=== PATIENT | female | born 1985 | race Caucasian/White ===

== ENCOUNTER 2016-02-11 23:43 | Emergency (ER) | payer OTHER ==
[~2016-02-11] VITALS: Ht 157.5 cm; Wt 68.1 kg
[~2016-02-11 23:43] MED LIST: CPR500 PO; MTR500 PO
[2016-02-11 23:48] VITALS: TEMP 36.8; Ht 157.5 cm; Wt 68.1 kg
[2016-02-12] MEDS ORDERED: SUMATRIPTAN SUCCINATE 6 MG/0.5 ML VIAL SQ STA (00:07)
[2016-02-12] MEDS ORDERED: KETOROLAC TROMETHAMINE 60 MG/2 ML VIAL IM STA (00:09)
[2016-02-12] MEDS ORDERED: ONDANSETRON 4MG OD TAB PO ONE (00:15)
[2016-02-12] MEDS ORDERED: DEXAMETHASONE SOD INJ 10 MG/ML VIAL IM ONE (00:15)
[2016-02-12] MEDS ORDERED: PRED50TA PO (01:08)
--- NOTE | 2016-02-12 01:08 | EMERGENCY ROOM VISIT NOTE ---
History First contact with patient: 23:57 Chief Complaint: HEADACHE Stated Complaint: MIGRAINE History of Present Illness The patient is a 30 year old female who presents to the Emergency Department by private vehicle for evaluation of a migraine headache. The patient reports a history of migraine headaches. She is provided Maxalt to be used for her breakthrough headaches. She reports that this headache started earlier today. She did take one Maxalt earlier today without relief of symptoms. She describes this as a "typical" migraine headache with associated nausea, photophobia, phonophobia, and pain in her neck. She reports that these symptoms are all consistent with previous migraines. She is managed by her primary care provider. She had an unremarkable imaging study of her head performed within the past few years. The patient rates her current discomfort as a 9/10. She denies any blurry vision, double vision, slurred speech, facial droop, unilateral weakness/numbness chest pain, abdominal pain, or chance for . Review of Systems A complete 10-point Review of Systems was discussed with the patient, with pertinent positives and negatives listed in the History of Present Illness. All remaining Review of Systems questions can be considered negative unless otherwise specified. Past Medical/Surgical History Medical Problems: (1) Anxiety (2) GERD (gastroesophageal reflux disease) (3) Insomnia (4) Migraines (5) Tobacco abuse (6) Tobacco Use Disorder Surgical Problems: (1) History of oophorectomy (2) History of wisdom tooth extraction Family History FH: cancer FH: diabetes mellitus FH: hypertension Social History Smoking Status: Current Every Day Smoker Alcohol Use: none Marital Status: single Housing Status: lives with family Occupation Status: unemployed Current/Historical Medications Scheduled Control Pills ( Control Pills), 1 TAB PO DAILY Omeprazole (Prilosec), 20 MG PO DAILY Prednisone (Prednisone), 50 MG PO DAILY Scheduled PRN Rizatriptan Benzoate (Maxalt), 5 MG PO UD PRN for Migraine Allergies Coded Allergies: No Known Allergies (Unverified , 07/14/15) Physical Exam Vital Signs Date Time Temp Pulse Resp B/P Pulse Ox O2 Delivery O2 Flow Rate FiO2 02/12/16 01:14 81 18 132/94 99 02/11/16 23:48 36.8 104 18 138/91 98 Room Air Pain Rating (0-10): 9 Physical Exam VITAL SIGNS - Vital signs and nursing notes were reviewed. GENERAL - 30-year-old female appearing her stated age who is in no acute distress. Communicates well with provider and answers questions appropriately. HEAD - Normocephalic, Atraumatic. No Lutz's Sign or Raccoon's Eyes. No depressed skull fractures palpable. EYES - PERRL with EOMI bilaterally. Sclera anicteric. Palpebral conjunctiva pink and moist with no injection noted. EARS - No deformities of external structures noted on gross examination bilaterally. No pain elicited with palpation of the tragus bilaterally. External auditory canals without discharge or otorrhea. Tympanic membranes pearly lopes without retraction or bulging. NOSE - Midline and without cyanosis. No epistaxis or purulent drainage noted. Septum midline without deviation or septal hematoma noted. MOUTH/OROPHARYNX - Without perioral cyanosis. Buccal mucosa pink and moist and without leukoplakia. Tongue midline with equal elevation of palate bilaterally. No tonsillar hypertrophy, erythema, or exudates noted. Good dentition noted. NECK - Neck with FROM. Supple to palpation. No lymphadenopathy noted. No nuchal rigidity. LUNGS - Chest wall symmetric without accessory muscle use, intercostals retractions, or central cyanosis. Normal vesicular breath sounds CTA B/L. No wheezes, rales, or rhonchi appreciated. CARDIAC - RRR with S1/S2. No murmur, rubs, or gallops appreciated. EXTREMITIES - No pretibial edema present. +3/5 radial and dorsalis pedis pulses palpated throughout. FROM with no tremors, fasciculations, or clonus noted on PROM throughout. +5/5 strength noted in UE/LE bilaterally. NEUROLOGIC - Cranial nerves II through XII grossly intact. Sensory intact to light touch throughout. Patellar reflexes +2/4. Patient able to perform rapid alternating movements appropriately. Negative Pronator Drift. Negative finger-to -nose. PSYCH - A&Ox3 and cooperates fully with examiner. Pt is very pleasant and interacts well with examiner. Medical Decision & Procedures Medications Administered Medications (Trade) Dose Ordered Sig/Makayla Route Start Time Stop Time Status Last Admin Dose Admin Ondansetron HCl (Zofran Odt) 4 mg ONE ONCE PO 02/12/16 00:15 02/12/16 00:16 DC 02/12/16 00:17 4 MG Sumatriptan Succinate (Imitrex Sq Inj) 6 mg NOW STAT SQ 02/12/16 00:07 02/12/16 00:09 DC 02/12/16 00:18 6 MG Dexamethasone Sodium Phosphate (Decadron Inj) 10 mg NOW ONCE IM 02/12/16 00:15 02/12/16 00:16 DC 02/12/16 00:20 10 MG Ketorolac Tromethamine (Toradol Inj) 60 mg NOW STAT IM 02/12/16 00:09 02/12/16 00:10 DC 02/12/16 00:22 60 MG ED Course Patient was seen and evaluated by myself. Previous emergency department visit notes were reviewed. The patient was treated with Toradol, Imitrex, Decadron, and Zofran. She was reevaluated and reports feeling better at this time. Patient was offered a short course of prednisone for her symptoms breakthrough migraine. She was encouraged to follow up with her primary care provider from today's visit. She was educated on worrisome symptoms for return visit to the emergency department. Patient discharged home afebrile and in good condition. Medical Decision Given the patient's presentation and stated complaints, I did elect to perform the above-mentioned workup. The patient presents today with a migraine headache. She has a history of the same. She took her Maxalt without relief. The patient has no focal neurological deficits. Her exam is otherwise unremarkable. She responded well to Imitrex, Toradol, Decadron, and Zofran. She drove to the emergency department which precluded the use of any narcotic medication for her symptoms. She is comfortable and is very to be discharged at this point. She was provided a short course of prednisone to help cornel this current migraine. The patient was educated on following with her primary care provider or return for any changing or worsening symptoms. Patient discharged home afebrile and in good condition. In the evaluation and treatment of this patient, the following differential diagnoses were considered: Migraine Headache, Intracranial Hemorrhage, Subdural Hematoma, Subarachnoid Hemorrhage, Cerebral Aneurysm, Temporal/Giant Cell Arteritis, Tension Headache, Meningitis, Encephalitis, or Hydrocephalus. Impression Primary Impression: Migraine Additional Impression: Cephalgia Departure Information Dispostion Home / Self-Care Condition GOOD Prescriptions Prednisone (Prednisone) 50 Mg Tab 50 MG PO DAILY for 4 Days, #4 TAB Prov: Yayo Quan, LAUREANO 02/12/16 Referrals Tasia Samaniego M.D. (PCP) Patient Instructions A Signature Page, ED Headache Migraine, My [facility] Additional Instructions You have been treated in the Emergency Department for a Headache. You have been prescribed Prednisone 50 mg to be taken orally once a day for the next 4 days. This is an anti-inflammatory medicine to be used to help minimize your symptoms. You should take the COMPLETE course of the medication. For pain control, you can use the following uowu-grk-[id number] medicines (if >12 yo): - Regular strength (325mg/tab) Tylenol (acetaminophen) 2 tabs every 4-6 hours as needed. Do not exceed 12 tablets in a 24 hour period. Avoid taking more than 4 grams (4000 mg) of Tylenol per day. This includes any other sources of acetaminophen you may take on a regular basis. - Regular strength (200 mg/tab) Advil (ibuprofen) 1-2 tabs every 4-6 hours as needed. Do not exceed a dose of 3200 mg per day. You should relax in a quiet, dark place for the rest of the day. Avoid any possible triggers including: cigarette smoke, caffeine, nicotine, chocolate, wine, beer, loud noises or music, or bright lights. You should schedule a follow-up appointment in 2-3 days with your Primary Care Provider or established Neurologist for further evaluation and treatment of your Headache. Return to the Emergency Department if your current symptoms worsen despite treatment course outlined above, or if you develop any of the following symptoms : intractable pain despite aforementioned treatment course, visual disturbances , loss of vision, unilateral weakness or facial drooping, slurring of speech, loss of coordination, or loss of consciousness.
[2016-02-12 01:14] VITALS: BP 132/94; PULSE 81; O2SAT 99
[2016-07-06] MEDS ORDERED: HYDR-5688 PO (12:01)
[2016-07-06] MEDS ORDERED: KETO10TA PO (12:01)
== END 2016-02-12 01:16 | disposition home or self-care (01) ==
LOC: C.EDB 23:44 → C.EDC 02-12 01:16
DX: G43.909 Migraine, unspecified, not intractable, without status migrainosus (principal); F41.9 Anxiety disorder, unspecified; K21.9 Gastro-esophageal reflux disease without esophagitis; G47.00 Insomnia, unspecified; F17.200 Nicotine dependence, unspecified, uncomplicated; Z98.890 Other specified postprocedural states; Z80.9 Family history of malignant neoplasm, unspecified; Z83.3 Family history of diabetes mellitus; Z82.49 Family history of ischemic heart disease and other diseases of the circulatory system

== ENCOUNTER 2016-03-26 15:29 | Emergency (ER) | payer OTHER ==
[~2016-03-26] VITALS: Ht 154.9 cm; Wt 70.0 kg
[2016-03-26 15:56] VITALS: TEMP 37.2; Ht 154.9 cm; Wt 70.0 kg
--- NOTE | 2016-03-26 17:03 | DIAGNOSTIC IMAGING REPORT ---
RIGHT ELBOW MIN 3 VIEWS ROUTINE CLINICAL HISTORY: rule out fracture Right trauma. Pain. COMPARISON: None. DISCUSSION: The bones and joint spaces appear intact. There is no evidence of fracture, dislocation or bony disease. There is no evidence for soft tissue swelling. Lucency overlying the medial epicondyles on a single projection appears to be artifactual IMPRESSION: Negative study. Electronically signed by: Isra Vasquez M.D. 03/26/2016 5:01 PM Dictated Date/Time: 03/26/2016 5:01 PM
[2016-03-26] MEDS ORDERED: IBUP-1451 PO (17:41)
[2016-03-26] MEDS ORDERED: HYDR-5688 PO (18:08)
--- NOTE | 2016-03-26 18:09 | EMERGENCY ROOM VISIT NOTE ---
ED Visit Note First contact with patient: 17:16 CHIEF COMPLAINT: Right elbow injury yesterday HISTORY OF PRESENT ILLNESS: Patient is a right-hand dominant 30-year-old white female who presents to emergency department for evaluation right elbow pain. She states she was pushing a bed, when she felt a pop in the right elbow. She complains of pain in the lateral aspect of the elbow that is worse with movement , particularly extension. She is been taking ibuprofen for discomfort which she rates a 7/10. She reports a history of tendinitis in this elbow but states that this pain feels different. REVIEW OF SYSTEMS: Review of systems as per HPI. All other systems reviewed were negative. At least 6 systems reviewed. PMH: Electronic medical records are reviewed and summarized as above/below. See Problem List.y. SOCIAL HISTORY: Patient lives at home with her son. Smoker.. PHYSICAL EXAM: Vital Signs: Reviewed nurse's notes. MUSCULOSKELETAL: Examination of the right elbow does not demonstrate any obvious deformity. No ecchymosis, abrasions or swelling or erythema over the olecranon. The patient has pain over the radial aspect of the elbow, over the radial head, and extending toward the supracondylar area. No pain over the olecranon. No discomfort over the triceps tendon. Range of motion is full, has discomfort with full extension but can flex, pronate and supinate well. No gross ligamentous instability is appreciated. EMERGENCY DEPARTMENT COURSE: An X-ray of the elbow does not show any fractures or dislocations. No fluid in the joint. The patient declined an arm sling. Patient was reviewed in the [facility] Prescription Drug Monitoring Program, and there were no red flags noted. She was given a small prescription for Caldwell to use for discomfort. Differential diagnosis included fracture, dislocation, sprain, ligamentous injury, among others. RIGHT ELBOW MIN 3 VIEWS ROUTINE CLINICAL HISTORY: rule out fracture Right trauma. Pain. COMPARISON: None. DISCUSSION: The bones and joint spaces appear intact. There is no evidence of fracture, dislocation or bony disease. There is no evidence for soft tissue swelling. Lucency overlying the medial epicondyles on a single projection appears to be artifactual IMPRESSION: Negative study. Problem List Medical Problems: (1) Anxiety Status: Chronic (2) GERD (gastroesophageal reflux disease) Status: Chronic (3) Insomnia Status: Chronic (4) Migraines Status: Chronic (5) Tobacco abuse Status: Chronic Surgical Problems: (1) History of oophorectomy Permanent Comment: left overy- benign dermoid cyst- Dr. Quintanilla Status: Resolved (2) History of wisdom tooth extraction Status: Resolved Current/Historical Medications Scheduled Control Pills ( Control Pills), 1 TAB PO DAILY Omeprazole (Prilosec), 20 MG PO DAILY Scheduled PRN Hydrocodone/Acetaminophen 5MG/325MG (Caldwell 5MG/325MG), 1-2 TABLETS PO Q4 PRN for Pain Ibuprofen Tab (Motrin), 800 MG PO Q8H PRN for Pain Rizatriptan Benzoate (Maxalt), 5 MG PO UD PRN for Migraine Allergies Coded Allergies: No Known Allergies (Unverified , 03/26/16) Vital Signs Date Time Temp Pulse Resp B/P Pulse Ox O2 Delivery O2 Flow Rate FiO2 03/26/16 18:19 92 18 143/106 98 Room Air 03/26/16 15:56 37.2 110 20 133/89 99 Room Air Medications Administered Medications (Trade) Dose Ordered Sig/Makayla Route Start Time Stop Time Status Last Admin Dose Admin Acetaminophen/ Hydrocodone Bitart (Caldwell 5/325mg Home Pack) 1 homepack UD ONCE PO 03/26/16 18:15 03/26/16 18:16 DC 03/26/16 18:19 1 HOMEPACK Departure Information Impression Primary Impression: Right elbow pain Prescriptions Hydrocodone/Acetaminophen 5MG/325MG (Caldwell 5MG/325MG) Tab 1-2 TABLETS PO Q4 Y for Pain, #15 TAB For Initial Treatment Prov: Megan Dwyer PA 03/26/16 Referrals Tasia Samaniego M.D. (PCP) Patient Instructions My [facility] Additional Instructions Hydrocodone/Acetaminophen (Caldwell) 5/325 mg: Take 1-2 pills every four hours for breakthrough pain. Avoid alcohol, operating machinery or dangerous equipment, working on ladders or roofs, DRIVING, or situations where being under the influence may be dangerous. It is recommended to use an fsnj-srs-ioyvsxx stool softener such as Colace, 100mg twice daily while taking this medication to avoid constipation. Ibuprofen(Motrin, Advil) may be used for fever or pain. Use 600mg every six hours as needed. Take with food. Avoid using more than 2400mg in a 24 hour period. Do not use 2400mg per day for more than three consecutive days without physician direction. Prolonged inappropriate use can lead to stomach upset or ulcers. This medication can be taken if you need to drive, work, or perform activities which may be dangerous when taking narcotic pain medication. (AND/OR) Acetaminophen(Tylenol) may be used for fever or pain. Use 1000mg every six hours as needed. Avoid using more than 3000mg in a 24 hour period. This medication can be taken if you need to drive, work, or perform activities which may be dangerous when taking narcotic pain medication. Ice compresses for 20 minutes at a time four times daily for 2-3 days. Rest and elevate your injury. Continue current medications. Return to the ER immediately for any numbness, tingling, severe pain, extreme swelling in the extremity or as needed. Follow up with your family doctor or orthopedics if your symptoms are not improving.
[2016-03-26] MEDS ORDERED: NORCO 5/325MG HOME PACK PO ONE (18:15)
[2016-03-26 18:19] VITALS: BP 143/106; PULSE 92; O2SAT 98
[2016-07-06] MEDS ORDERED: HYDR-5688 PO (12:01)
[2016-07-06] MEDS ORDERED: KETO10TA PO (12:01)
== END 2016-03-26 18:22 | disposition home or self-care (01) ==
LOC: C.EDB 15:30 → C.EDD 18:22
DX: M25.521 Pain in right elbow (principal); X58.XXXA Exposure to other specified factors, initial encounter; F41.9 Anxiety disorder, unspecified; K21.9 Gastro-esophageal reflux disease without esophagitis; F17.200 Nicotine dependence, unspecified, uncomplicated; Z98.890 Other specified postprocedural states

== ENCOUNTER 2016-06-27 19:27 | Emergency (ER) | payer OTHER ==
[~2016-06-27] VITALS: Ht 157.5 cm; Wt 70.2 kg
[~2016-06-27 19:27] MED LIST changes: -CPR500 PO; +HYDR-5688 PO; +IBUP-1451 PO; -MTR500 PO
[2016-06-27 19:30] VITALS: BP 146/95; PULSE 96; TEMP 37; O2SAT 99; Ht 157.5 cm; Wt 70.2 kg
[2016-06-27] MEDS ORDERED: OXYCODONE IR HOME PACK PO ONE (19:45)
[2016-06-27] MEDS ORDERED: OXYC1TAB3 PO ×2 (20:02→20:33)
[2016-06-27] MEDS ORDERED: PRLSR20 PO (20:54)
[2016-06-27] MEDS ORDERED: RIZA5TAB10 PO (20:54)
[2016-06-27] MEDS ORDERED: BCPILLS PO (20:54)
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
[2016-07-06] MEDS ORDERED: HYDR-5688 PO (12:01)
[2016-07-06] MEDS ORDERED: KETO10TA PO (12:01)
[2016-12-09] MEDS ORDERED: NAPR-1169 PO (13:38)
[2016-12-09] MEDS ORDERED: IBUP-1050 PO (13:38)
[2016-12-09] MEDS ORDERED: IBUP-1451 PO (20:57)
== END 2016-06-27 20:00 | disposition home or self-care (01) ==
LOC: C.EDB 19:28 → C.EDD 20:00
DX: S83.92XA Sprain of unspecified site of left knee, initial encounter (principal); X50.1XXA Overexertion from prolonged static or awkward postures, initial encounter; F41.9 Anxiety disorder, unspecified; K21.9 Gastro-esophageal reflux disease without esophagitis; G47.00 Insomnia, unspecified; G43.909 Migraine, unspecified, not intractable, without status migrainosus; Z72.0 Tobacco use; Z79.3 Long term (current) use of hormonal contraceptives

== ENCOUNTER → 2016-07-06 | Day surgery (SDC) | payer OTHER ==
[2016-06-29 07:34] VITALS: Ht 157.5 cm; Wt 65.9 kg
[~2016-07-06] VITALS: Ht 157.5 cm; Wt 65.9 kg
[~2016-07-06] MED LIST changes: +ATROPINE SULFATE 0.1 MG/ML 5ML SYR IV PRN; +BCPILLS PO; +BUPIVACAINE/EPINEPHRINE 0.25% 1:200,000 30 ML VIAL ONE; +CEFAZOLIN 2000 MG/60 ML D5W IV SCH; +CITA20TA9 PO; +DEXAMETHASONE SOD INJ 4 MG/ML VIAL ONE; +EpHEDrine SULFATE INJ 50 MG/ML AMP IV PRN; +FENTANYL CITRATE INJ 50 MCG/1 ML 2 ML VIAL ONE; +HYDROCODONE/ACETAMOPHEN 5/325MG TAB PO PRN; +HYDROmorphone INJ 1 MG/ML SYR IV PRN; +IBUP-1050 PO; +KETO10TA PO; +KETOROLAC TROMETHAMINE 30 MG/ML VIAL IV. PRN; +KETOROLAC TROMETHAMINE 30 MG/ML VIAL ONE; +LACTATED RINGER'S 1000ML 1,000 ML IV SCH; +LIDOCAINE HCL 2% 2 ML VIAL (20MG/ML) ONE; +METH4PAK PO; +MIDAZOLAM HCL 1 MG/ML 2ML VIAL ONE; +NAPR-1169 PO; +OMEP40CA41 PO; +ONDANSETRON INJ 2 MG/ML 2 ML VIAL IV PRN; +ONDANSETRON INJ 2 MG/ML 2 ML VIAL ONE; +PROPOFOL IV EMULSION 10 MG/ML 20 ML VIAL IV ONE; +RIZA5TAB10 PO; +SODIUM CHLORIDE 0.9% 1000ML 1,000 ML IV SCH
--- NOTE | 2016-07-06 09:15 | History & Physical Bridge - [place] ---
H&P Re-Evaluation Bridge Note: I have examined the patient, reviewed the History & Physical and in the interval since the performance of the History & Physical I have noted the following changes of clinical significance: No changes noted
--- NOTE | 2016-07-06 11:46 | [facility] Post Operative Brief Note ---
Immediate Operative Summary Operative Date Jul 06, 2016. Pre-Operative Diagnosis Right Elbow Lateral Epicondylitis Post-Operative Diagnosis same as preop Procedure(s) Performed Right Elbow Nirshl Procedure Surgeon Dr. Cunningham Gear Tooth Lapping Machine Operator Surgeon(s) Lexx Regan PA-C Estimated Blood Loss 0ML Findings as above Specimens A: Lateral Epicondylitis Right Elbow
--- NOTE | 2016-07-06 12:03 | Discharge Instructions-SurgCtr ---
Discharge Instructions Date of Service Jul 06, 2016. Visit Reason for Visit: Right Elbow Lateral Epicondylitis Discharge Discharge Diagnosis / Problem: SAME ASA MEE Discharge Goals Goal(s): Decrease discomfort, Improve function Activity Recommendations Activity Limitations: as noted below Lifting Limitations: until after follow-up appointment Exercise/Sports Limitations: until after follow-up appointment Shower/Bathe: may shower/bathe in 3 days Anesthesia . Post Anesthesia Instructions: If you have had General Anesthesia or IV Sedation: * Do not drive today. * Resume driving when surgeon permits. * Do not make important decisions or sign legal documents today. * Call surgeon for: 1. Temperature elevations greater than 101 degrees F. 2. Uncontrollable pain. 3. Excessive bleeding. 4. Persistent nausea and vomiting. 5. Medication intolerance (nausea, vomiting or rash). * For nausea and vomiting use only clear liquids such as: tea, soda, bouillon until nausea subsides, then gradually increase diet as tolerated. * If you have any concerns or questions, call your surgeon's office. If physician is unavailable and it is an emergency, call 911 or go to the nearest emergency room. . Instructions / Follow-Up Instructions / Follow-Up MEDICATIONS: * Resume previous medications unless instructed otherwise by your surgeon. * Always take pain medication on a full stomach or with food to avoid upset stomach. * Do not drink alcohol or drive while taking narcotics. * Ibuprofen or Tylenol may be taken if narcotic not needed. SPECIAL CARE INSTRUCTIONS: __ None _X_ Keep extremity elevated and iced x 48 hours; apply ice 20-30 minutes 8-10 times/day. May remove at night. __ Sling __24 hrs/day __ Remove at night __ Shoulder Immobilizer __ 24 hrs/day __ Remove at night _X_ Dressing __ Maintain until seen in office, may shower with plastic over site _X_ Remove dressings in 3 DAYS. MAY SHOWER SOONER IF COVERED WITH PLASTIC BAG _X_ Cover incisions with band-aids after showering __ Do not remove steri-strips WEAR THE COCK-UP WRIST SPLINT AT ALL TIMES Call physician if chills or temperature rises above 102 degrees or pain unrelieved by prescribed pain medications at . . Diet Recommendations Home Diet: no limitations Fluid Restriction: None Procedures Procedures Performed: Right Elbow Nirshl Procedure Pending Studies Studies pending at discharge: yes List of pending studies: LATERAL EPICONDYLITIS OF RIGHT ELBOW Work Instructions Return To Work: after follow-up Lifting Limitations: no more than 10 pounds Medical Emergencies . Who to Call and When: Medical Emergencies: If at any time you feel your situation is an emergency, please call 911 immediately. . Non-Emergent Contact Non-Emergency issues call your: Primary Care Provider Call Non-Emergent contact if: you have a fever, temperature is above 101.5 . . "Provider Documentation" section prepared by Doni Regan. .
[2016-07-06] MEDS: FENTANYL CITRATE INJ 50 MCG/1 ML 2 ML VIAL IV PRN ×4 (12:04→12:26)
--- NOTE | 2016-07-06 12:19 | OPERATIVE REPORT ---
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 POSTOPERATIVE DIAGNOSIS: Same. PROCEDURE: Right elbow Nirschl procedure. SURGEON: Dr. Angel Cunningham. TOOL BUILDER: Jagjit Regan PA-C, whose assistance was necessary for retraction and helping positioning the arm. ANESTHESIA: General. COMPLICATIONS: None. CONDITION: Stable to PACU. INDICATIONS: Yolis is a pleasant 31-year-old female, who presented to my office with chronic right elbow pain. Clinically, she was diagnosed with a lateral epicondylitis. She failed extensive conservative treatment including multiple injections and elected to undergo a tenotomy. OPERATION AND FINDINGS: On 07/06/2016, she arrived at [facility] for the above procedure. She was seen in the preoperative holding area and the operative extremity was identified and signed. She was given a preoperative antibiotic and taken back to the operating room, laid on the table in supine position and put under general anesthesia. The right elbow was then prepped and draped in sterile fashion. Time-out was done and the patient and operative extremity was properly identified. A curvilinear incision was made over the lateral epicondyle. Dissection was taken down to the extensor mechanism. An incision was made between the extensor digitorum comminus and the extensor digitorum longus. The brevis was identified beneath. Lang-appearing angiofibroblastic tissue was identified and it was removed with a sharp knife. The tissue was sent to pathology for diagnosis. A small arthrotomy was made into the elbow. Time was spent ensuring all the diseased tissue was excised. A rongeur was used to do a minimal epicondylectomy. The wound was then irrigated and the interval between the extensor comminus and digitorum longus was closed with 2-0 Vicryl suture and skin was closed with 3-0 Vicryl and a nylon. She was then placed in a soft dressing and given a wrist splint. She was then extubated, transferred to [facility] and taken to the postanesthesia care unit in stable condition. She tolerated the procedure well. I attest to the content of the Intraoperative Record and any orders documented therein. Any exception s are noted below.
[2016-07-06 12:41] VITALS: TEMP 36.6
[2016-07-06 13:08] VITALS: BP 121/80; PULSE 84; O2SAT 97
--- NOTE | 2016-07-06 13:10 | Anesthesia Progress Nt - [facility] ---
Anesthesia Post Op Note Date & Time Jul 06, 2016 at 13:05 Vital Signs Pain Intensity: 3 Vital Signs Past 12 Hours Date Time Temp Pulse Resp B/P (MAP) Pulse Ox O2 Delivery O2 Flow Rate FiO2 07/06/16 12:41 36.6 84 20 127/79 (95) 98 Room Air 07/06/16 12:31 36.7 84 16 130/71 98 Room Air 07/06/16 12:31 130/71 07/06/16 12:30 88 16 96 07/06/16 12:30 88 16 07/06/16 12:26 119/83 07/06/16 12:25 81 15 98 07/06/16 12:25 84 15 07/06/16 12:22 103/79 07/06/16 12:20 84 17 07/06/16 12:20 83 17 100 07/06/16 12:16 113/67 07/06/16 12:15 82 13 100 07/06/16 12:15 83 13 07/06/16 12:11 120/74 07/06/16 12:10 79 14 100 07/06/16 12:10 80 14 07/06/16 12:06 126/80 07/06/16 12:05 82 18 100 07/06/16 12:05 82 18 07/06/16 12:01 129/82 07/06/16 12:00 84 20 07/06/16 12:00 84 20 100 07/06/16 11:56 126/75 07/06/16 11:55 86 20 100 07/06/16 11:55 87 20 07/06/16 11:51 128/88 07/06/16 11:50 90 15 100 07/06/16 11:50 90 15 07/06/16 11:47 124/113 07/06/16 11:45 36.2 76 16 124/113 97 Mask 6 07/06/16 10:02 37.1 97 16 130/82 (98) 100 Room Air Notes Mental Status: alert / awake / arousable, participated in evaluation Pt Amnestic to Procedure: Yes Nausea / Vomiting: adequately controlled Pain: adequately controlled Airway Patency, RR, SpO2: stable & adequate BP & HR: stable & adequate Hydration State: stable & adequate Anesthetic Complications: no major complications apparent In preop holding area, I performed my airway exam and obtained a mallampati grade but the patient refused to show me her teeth. She said she had very poor dentition with many missing and decaying teeth. She did not think anything was loose at the time. In the OR after induction and prior to placing the LMA, myself and BRICK UNLOADER TENDER looked at patient's teeth and noted many decaying teeth and great care was taken to place the LMA, which was done easily. On emergence from anesthesia, LMA was removed but a small amount of her front tooth rubbed off on the LMA (appeared to be a combination of plaque and rotted enamel). I spoke to the patient prior to discharge to let her know what had happened and she stated she was not concerned and said she was having all of her teeth removed at the end of this month given her poor dentition. She wanted no further action to be taken. All questions were answered prior to discharge.
== END | disposition home or self-care (01) ==
LOC: X.SURG 09:44
PROVIDERS: ATTEND Orthopaedic Surgery
DX: M77.11 Lateral epicondylitis, right elbow (principal); F17.210 Nicotine dependence, cigarettes, uncomplicated

== ENCOUNTER 2016-08-22 22:16 | Emergency (ER) | payer OTHER ==
[~2016-08-22] VITALS: Ht 157.5 cm; Wt 69.4 kg
[~2016-08-22 22:16] MED LIST changes: -ATROPINE SULFATE 0.1 MG/ML 5ML SYR IV PRN; -BUPIVACAINE/EPINEPHRINE 0.25% 1:200,000 30 ML VIAL ONE; -CEFAZOLIN 2000 MG/60 ML D5W IV SCH; -CITA20TA9 PO; -DEXAMETHASONE SOD INJ 4 MG/ML VIAL ONE; -EpHEDrine SULFATE INJ 50 MG/ML AMP IV PRN; -FENTANYL CITRATE INJ 50 MCG/1 ML 2 ML VIAL ONE; -HYDROCODONE/ACETAMOPHEN 5/325MG TAB PO PRN; -HYDROmorphone INJ 1 MG/ML SYR IV PRN; -IBUP-1050 PO; -IBUP-1451 PO; -KETOROLAC TROMETHAMINE 30 MG/ML VIAL IV. PRN; -KETOROLAC TROMETHAMINE 30 MG/ML VIAL ONE; -LACTATED RINGER'S 1000ML 1,000 ML IV SCH; -LIDOCAINE HCL 2% 2 ML VIAL (20MG/ML) ONE; -METH4PAK PO; -MIDAZOLAM HCL 1 MG/ML 2ML VIAL ONE; -NAPR-1169 PO; -OMEP40CA41 PO; -ONDANSETRON INJ 2 MG/ML 2 ML VIAL IV PRN; -ONDANSETRON INJ 2 MG/ML 2 ML VIAL ONE; -PROPOFOL IV EMULSION 10 MG/ML 20 ML VIAL IV ONE; -SODIUM CHLORIDE 0.9% 1000ML 1,000 ML IV SCH
[2016-08-22 22:19] VITALS: TEMP 37.1; Ht 157.5 cm; Wt 69.4 kg
[2016-08-22] MEDS ORDERED: CITA20TA9 PO (22:34)
[2016-08-22] MEDS ORDERED: OMEP40CA41 PO (22:34)
[2016-08-22] MEDS ORDERED: KETOROLAC TROMETHAMINE 60 MG/2 ML VIAL IM STA (22:45)
[2016-08-22] MEDS ORDERED: DEXAMETHASONE SOD INJ 10 MG/ML VIAL PO ONE (22:45)
[2016-08-23] MEDS ORDERED: METH4PAK PO (00:21)
[2016-08-23] MEDS ORDERED: OXYCODONE IR HOME PACK PO ONE (00:30)
[2016-08-23 00:59] VITALS: BP 148/93; PULSE 71; O2SAT 100
--- NOTE | 2016-08-23 01:04 | EMERGENCY ROOM VISIT NOTE ---
History First contact with patient: 22:25 Chief Complaint: OTHER COMPLAINT Stated Complaint: PINCHED NERVE History of Present Illness The patient is a 31 year old female who presents to the Emergency Room with complaints of neck pain that radiates down her right arm for the past 2 weeks as aching, ranging in severity 6 out of 10. Patient just finished a steroid taper pack and this seemed to help but the pain is returned since she's finished this. No direct injury to the area. She's had neck pain before. This is recurrent. She has not seen orthopedic spine For this. Patient denies numbness, tingling, weakness, chest pain, dyspnea, neck stiffness, headache, fevers, chills, trauma to the area. Review of Systems See HPI for pertinent positives & negatives. A total of 10 systems reviewed and were otherwise negative. Past Medical/Surgical History Medical Problems: (1) Anxiety (2) GERD (gastroesophageal reflux disease) (3) Insomnia (4) Migraines (5) Tobacco abuse (6) Tobacco Use Disorder Surgical Problems: (1) History of oophorectomy (2) History of wisdom tooth extraction Family History FH: cancer FH: diabetes mellitus FH: hypertension Social History Smoking Status: Current Every Day Smoker Alcohol Use: none Marital Status: single Housing Status: lives with family Occupation Status: unemployed Current/Historical Medications Scheduled Control Pills ( Control Pills), 1 TAB PO QPM Methylprednisolone (Medrol Dosepak), 0 PO DAILY Omeprazole (Prilosec), 40 MG PO DAILY Scheduled PRN Citalopram Hydrobromide (Celexa), 20 MG PO DAILY PRN for UNDECIDED Rizatriptan Benzoate (Maxalt), 5 MG PO UD PRN for Migraine Allergies Coded Allergies: Latex1 -Allergic Contact Dermititis (Verified Allergy, Unknown, RASH, ITCHING, 08/22/16) NO KNOWN DRUG ALLERGIES (Verified Allergy, Unknown, ., 08/22/16) Physical Exam Vital Signs Date Time Temp Pulse Resp B/P (MAP) Pulse Ox O2 Delivery O2 Flow Rate FiO2 08/22/16 22:19 37.1 74 18 195/105 98 Room Air Physical Exam VITALS: Vitals are noted on the nurse's note and reviewed by myself. Vital signs stable. GENERAL: Pleasant female, in no acute distress, nondiaphoretic, well-developed well-nourished. SKIN: The skin was without rashes, erythema, edema, or bruising. There is no tenting of the skin. Capillary reflex less than 2 seconds. HEAD: Normocephalic atraumatic. EARS: External auditory canals clear, tympanic membranes pearly lopes without erythema or effusion bilaterally. EYES: Pupils equal round and reactive to light and accommodation. Conjunctivae without injection, sclerae without icterus. Extraocular movements intact. NOSE: Patent, turbinates without inflammation or discharge. No sinus tenderness. MOUTH: Mucous membranes moist. Pharynx without erythema or exudate. Uvula midline. Airway patent. Tongue does not deviate. NECK: Supple without nuchal rigidity. No lymphadenopathy. No thyromegaly. Cervical spine is nontender. No JVD. HEART: Regular rate and rhythm without murmurs gallops or rubs. LUNGS: Clear to auscultation bilaterally without wheezes, rales or rhonchi. No dullness to percussion. No retractions or accessory muscle use. ABDOMEN: Positive bowel sounds x 4. Normal tympanic percussion. Soft, nontender, without masses or organomegaly. Arellano sign negative. No guarding or rebound tenderness. MUSCULOSKELETAL: No muscle atrophy, erythema, or edema noted. 5 out of 5 strength to bilateral upper extremities. NEURO: Patient was alert and oriented to person place and time. Normal sensation to light and sharp touch. No focal neurological deficits. Medical Decision & Procedures Medications Administered Medications (Trade) Dose Ordered Sig/Makayla Route Start Time Stop Time Status Last Admin Dose Admin Ketorolac Tromethamine (Toradol Inj) 60 mg NOW STAT IM 08/22/16 22:45 08/22/16 22:46 DC 08/22/16 22:45 60 MG Dexamethasone Sodium Phosphate (Decadron Inj) 10 mg NOW ONCE PO 08/22/16 22:45 08/22/16 22:46 DC 08/22/16 22:45 10 MG Oxycodone HCl (Roxicodone Immediate Rel 5MG Home Pack) 1 homepack UD ONCE PO 08/23/16 00:30 08/23/16 00:31 DC 08/23/16 00:30 1 HOMEPACK ED Course Prior records/ancillary studies reviewed. Triage Nursing notes reviewed. The patient's history was concerning for neck pain. Differential diagnosis: Etiologies such as musculoskeletal, disc herniation, fracture, metastatic disease, cord compression, discitis, infection, acute exacerbation of chronic neck pain, radiculopathy, as well as others were entertained. Physical findings: As above. No focal neurologic findings noted. ER treatment provided: Decadron, Toradol On reassessment the patient felt better. Diagnostics interpreted by me: Imaging studies: CT C SPINE: Mild reversal of normal lordotic curvature. No acute fracture or malalignment. No advanced spondylosis. Spinal canal grossly preserved. Scattered nonspecific small cervical lymph nodes. Comparison study dated 11/23/2015 Radiologist: Fred Prado M.D. This appears to be consistent with cervical radiculopathy. Patient was neurovascularly and neurologically intact. She is well-appearing. She is advised to follow-up with orthopedic spine in a few days or here in the ER sooner for severe pain, numbness, tingling, weakness, worsening signs or symptoms or as needed. The patient's physical examination and detailed history did not reveal any red flags for neck pain such as those listed in the differential diagnosis. Therefore advanced diagnostics and consultations were felt to be unwarranted. By the evaluation outlined above emergent etiologies such as fracture, metastatic disease, infection, cord compression, as well as others were deemed relatively unlikely. The pt informed about the findings as listed above. All questions were answered and pleased with the treatment. Return instructions were outlined and the patient was discharged in stable condition. Outpatient prescription management: medrol dosepack Oxy IR 5mg 1-2 po Q4 hrs prn home pack Referral: The patient was referred back to ortho spine and/or primary care physician for follow-up in 2 to 3 days for a recheck of the current condition. Medical Decision As above Impression Primary Impression: Cervical radiculopathy Departure Information Dispostion Home / Self-Care Condition GOOD Prescriptions Methylprednisolone (MEDROL DOSEPAK) 4 Mg Sean 0 PO DAILY, #1 PKT Prov: Yolis Ronquillo .LAUREANO 08/23/16 Referrals Duran Horowitz M.D. Forms WORK / SCHOOL INSTRUCTIONS, HOME CARE DOCUMENTATION FORM, IMPORTANT VISIT INFORMATION Patient Instructions My [facility], ED Cervical Radiculopathy Additional Instructions You had a few enlarged lymph nodes on CT scan to your cervical region. Follow- up family care for this to make sure this resolves. Medrol Dosepak as directed. Oxycodone (OxyIR) 5mg: Take 1-2 pills every four hours for breakthrough pain. Avoid alcohol, operating machinery or dangerous equipment, working on ladders or roofs, DRIVING, or situations where being under the influence may be dangerous. It is recommended to use an [id number] stool softener such as Colace, 100mg twice daily while taking this medication to avoid constipation. Ibuprofen(Motrin, Advil) may be used for fever or pain. Use 600mg every six hours as needed. Take with food. Avoid using more than 2400mg in a 24 hour period. Do not use 2400mg per day for more than three consecutive days without physician direction. Prolonged inappropriate use can lead to stomach upset or ulcers. This medication can be taken if you need to drive, work, or perform activities which may be dangerous when taking narcotic pain medication. (AND/OR) Acetaminophen(Tylenol) may be used for fever or pain. Use 1000mg every six hours as needed. Avoid using more than 3000mg in a 24 hour period. This medication can be taken if you need to drive, work, or perform activities which may be dangerous when taking narcotic pain medication. Rest and avoid heavy lifting until your symptoms resolve and then gradually return to full activity. A good rule of thumb is if it hurts your back to perform a certain activity, then it should be avoided until you are healthy again. A heating pad, warm compresses, or a hot shower may help with tight muscles and can be done several times a day as needed. Continue current medications. Return to the ER immediately for any numbness, tingling, severe pain, loss of control of your bowels or bladder, inability to walk, or as needed. Follow up with your primary care physician or orthopedics spine within 3-5 days for a recheck of your current condition.
--- NOTE | 2016-08-23 07:02 | DIAGNOSTIC IMAGING REPORT ---
CERVICAL SPINE W/O CT DOSE: 227.51 mGy.cm HISTORY: Acute neck pain with radiation down the right arm TECHNIQUE: Multiple axial CT images of the cervical spine were obtained without contrast. Comparison: Cervical spine CT 11/23/2015. Findings: Vertebral body heights and are normal without compression deformity. There is reversal of the normal cervical lordosis with 12 degrees kyphotic curvature centered at C4-C5. No fracture or subluxation is identifed. The intervertebral disc spaces are preserved. No significant central canal or neural foraminal stenosis is identified. C2-C3: No central canal or foraminal narrowing. C3-C4: No central canal or foraminal narrowing. C4-C5: Small broad-based posterior disc bulge extending into the right lateral recess and right neuroforamen effaces the ventral thecal sac and causes mild right lateral recess and mild right foraminal narrowing, best seen on image 44 of the axial series on soft tissue window. C5-C6: Broad-based posterior disc bulge without central canal or foraminal narrowing. C6-C7: No central canal or foraminal narrowing. C7-T1: No central canal or foraminal narrowing. T1-T2: No central canal or foraminal narrowing. The cervical soft tissues appear unremarkable. The visualized lung apices appear clear. IMPRESSION: 1. No acute cervical spine fracture or dislocation. 2. Reversal of the normal cervical lordosis with 12 degrees kyphotic curvature centered at C4-C5 may be related to positioning or paraspinal muscle spasm. 3. Minimal discogenic degeneration at C4-C5 and C5-C6 with resultant mild right lateral recess and mild right foraminal narrowing at C4-C5. The above report was generated using voice recognition software. It may contain grammatical, syntax or spelling errors. Electronically signed by: Ramon Jameson M.D. 08/23/2016 7:01 AM Dictated Date/Time: 08/23/2016 6:53 AM
== END 2016-08-23 01:01 | disposition home or self-care (01) ==
LOC: C.EDB 22:18
DX: M54.12 Radiculopathy, cervical region (principal); F41.9 Anxiety disorder, unspecified; K21.9 Gastro-esophageal reflux disease without esophagitis; G47.00 Insomnia, unspecified; F17.200 Nicotine dependence, unspecified, uncomplicated; Z90.722 Acquired absence of ovaries, bilateral; Z83.3 Family history of diabetes mellitus; Z82.49 Family history of ischemic heart disease and other diseases of the circulatory system; Z79.3 Long term (current) use of hormonal contraceptives